=== PATIENT | female | born 1995 ===

== ENCOUNTER 2018-09-07 14:09 | Emergency (ER) | payer OTHER ==
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
[2018-09-07 14:28] VITALS: BP 118/73
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
== END 2018-09-07 15:21 | disposition home or self-care (01) ==
LOC: UCEAST 14:09
DX: S93.401A Sprain of unspecified ligament of right ankle, initial encounter (principal); X50.1XXA Overexertion from prolonged static or awkward postures, initial encounter; Y92.89 Other specified places as the place of occurrence of the external cause
CPT/HCPCS: 99203; G0463